=== PATIENT | female | born 1975 | race Caucasian/White ===

== ENCOUNTER 2017-11-01 12:29 | Emergency (ER) | payer OTHER ==
[~2017-11-01] VITALS: Ht 160 cm; Wt 59.0 kg
[~2017-11-01 12:29] MED LIST: INTESTINEX1 CAP PO; ZANTAC150 MG PO
== END 2017-11-01 13:24 | disposition home or self-care (01) ==
LOC: ER 12:29
DX: S01.111A Laceration without foreign body of right eyelid and periocular area, initial encounter (principal); W45.8XXA Other foreign body or object entering through skin, initial encounter; Y93.89 Activity, other specified; Y92.091 Bathroom in other non-institutional residence as the place of occurrence of the external cause; Y99.8 Other external cause status

== ENCOUNTER 2017-11-09 13:56 | Emergency (ER) | payer OTHER ==
[~2017-11-09] VITALS: Ht 160 cm; Wt 59.0 kg
== END 2017-11-09 21:30 | disposition home or self-care (01) ==
LOC: ER 13:56
DX: Z48.02 Encounter for removal of sutures (principal)